=== PATIENT | male | born 1975 | race Caucasian/White ===

== ENCOUNTER 2020-02-04 13:42 | Emergency (ER) | payer OTHER ==
--- NOTE | 2020-02-04 13:47 | PDOC ---
Rapid Medical Evaluation Time Seen by Provider: 02/04/20 13:45 Medical Evaluation: Allergies Allergy/AdvReac Type Severity Reaction Status Date / Time No Known Allergies Allergy Verified 02/04/20 13:44 02/04/20 13:45 45 year old male pmhx of HTN CAD (on plavix) kidney stones complaining of R flank pain. PE very mild R CVAT Plan: UA Labs CT Pt to precede to ED for further eval
[2020-02-04 13:48] VITALS: BP 165/90; PULSE 83; TEMP 98.4; BMI 32.3
--- OUTSIDE RECORDS SUMMARY | 2020-02-04 14:14 | XMS ---
:1975 Author Organization [facility] Support Name Relationship Address Phone [address] [address] Unavailable N/A [address] [place] [address] Re-disclosure Warning The records that you are about to access may contain information from federally- assisted alcohol or drug abuse programs. If such information is present, then the following federally mandated warning applies: This information has been disclosed to you from records protected by federal confidentiality rules (42 CFR part 2). The federal rules prohibit you from making any further disclosure of this information unless further disclosure is expressly permitted by the written consent of the person to whom it pertains or as otherwise permitted by 42 CFR part 2. A general authorization for the release of medical or other information is NOT sufficient for this purpose. The Federal rules restrict any use of the information to criminally investigate or prosecute any alcohol or drug abuse patient.The records that you are about to access may contain highly sensitive health information, the redisclosure of which is protected by Article 27-F of the [facility] Public Health law. If you continue you may haveaccess to information: Regarding HIV / AIDS; Provided by facilities licensed or operated by the [facility] Office of Mental Health; or Provided by the [facility] Office for People With Developmental Disabilities. If such information is present, then the following [facility] mandated warning applies: This information has been disclosed to you from confidential records which are protected by state law. State law prohibits you from making any further disclosure of this information without the specific written consent of the person to whom it pertains, or as otherwise permitted by law. Any unauthorized further disclosure in violation of state law may result in a fine or skilled nursing sentence or both. A general authorization for the release of medical or other information is NOT sufficient authorization for further disclosure. Insurance Providers Payer name Policy type Policy ID Covered Covered alliance party's Policy P kane / Coverage alliance party ID relationship to Josue Inf ormation type josue LENARD [id number] 000 HEALTH NON CAP Results ID Date Data Source [id number] 01/27/2020 03:17:00 PM EDT [facility] Name Value Range Interpretation Code Description Data Desire rce(s) Supporting Document(s ) SARS-COV-2 [facility] QL NIMA+PROBE This lab was ordered by SRINIVASA MARTINEZ and reported by [facility]. ID Date Data Source [id number] 09/26/2019 01:48:00 PM EDT [facility] Name Value Range Interpretation Code Description Data Desire rce(s) Supporting Document(s ) SARS-COV-2 [facility] PCR This lab was ordered by [facility] and reported by [facility]. Procedure
--- NOTE | 2020-02-04 14:40 | PDOC ---
History of Present Illness - General Chief Complaint: Back Pain Stated Complaint: LT SIDE PAIN Time Seen by Provider: 02/04/20 13:45 History Source: Patient - History of Present Illness Timing/Duration: reports: getting worse, intermittent Past History - Medical History Allergies/Adverse Reactions: Allergies Allergy/AdvReac Type Severity Reaction Status Date / Time No Known Allergies Allergy Verified 02/04/20 13:44 Cardiac Disorders: Yes (CAD) COPD: No HTN: Yes Kidney Stones: Yes - Surgical History Cardiac Surgery: Yes (1 stent) - Psycho-Social/Smoking History Smoking History: Never smoked Have you smoked in the past 12 months: No - Substance Abuse Hx (Audit-C & DAST Scrn) How often the patient has a drink containing alcohol: Never Score: In Men: 4 or > Positive; In Women: 3 or > Positive: 0 Screen Result (Pos requires Nsg. Audit-10AR): Negative In the last yr the pt used illegal drug/Rx for NonMed reason: No Score: Yes response is considered Positive: 0 Screen Result (Positive result requires Nsg. DAST-10): Negative Review of Systems - Review of Systems Constitutional: No: Chills, Fever : Yes: Flank Pain. No: Dysuria, Hematuria *Physical Exam - Vital Signs Last Vital Signs Temp Pulse Resp BP Pulse Ox 98.4 F 83 18 165/90 98 02/04/20 13:44 02/04/20 13:44 02/04/20 13:44 02/04/20 13:44 02/04/20 13:44 - Physical Exam General Appearance: Yes: Appropriately Dressed. No: Apparent Distress HEENT: positive: Normal Voice Neck: positive: Supple Respiratory/Chest: negative: Respiratory Distress Gastrointestinal/Abdominal: positive: Soft. negative: Tender Musculoskeletal: negative: CVA Tenderness Integumentary: positive: Dry, Warm Neurologic: positive: Fully Oriented, Alert, Normal Mood/Affect ED Treatment Course - LABORATORY CBC & Chemistry Diagram: 02/04/20 15:00 02/04/20 15:00 Medical Decision Making - Medical Decision Making 02/04/20 14:38 45 yo M, h/o uncomplicated renal stones, here w/ worsening R intermittent flank pain, similar to prior stone. +nausea, no vomiting, dysuria, hematuria, f/c. See exam R/o recurrent renal colic Denies pain at this time but states it is intermittent -labs/ua -CT 02/04/20 14:52 02/04/20 16:[address], patient states he passed a stone and was able to col lect it in specimen bag. No pain at this time. CT read as 0.3 cm non- obstructing stone in the midpole of the right kidney. No ureteral stone or hydro noted. Labs unremarkable, pt declined to wait for UA results. Stable for discharge to take Motrin for any discomfort as needed and follow-up with urology Discharge - Discharge Information Problems reviewed: Yes Clinical Impression/Diagnosis: Right flank pain Condition: Improved Disposition: HOME - Follow up/Referral Referrals: Jonathon Fiore MD [Primary Care Provider] - Fish Anderson MD., [Staff Physician] - - Patient Discharge Instructions Patient Printed Discharge Instructions: DI for Kidney Stones Additional Instructions: Your pain was most likely caused by the stone that you passed while in the emergency room. Your CAT scan shows a 0.3 cm stone that is in the kidney itself and usually causes no pain Return to the ED as needed, otherwise follow-up with your urologist - Post Discharge Activity Work/Back to School Note: Back to Work
[2020-02-04] MEDS ORDERED: SODIUM CHLORIDE 1,000 ML IV STA (14:51)
[2020-02-04] MEDS ORDERED: KETOROLAC TROMETHAMINE 30 MG/1 ML VIAL IVPUSH ONE (14:51)
[2020-02-04] MEDS ORDERED: ONDANSETRON 4 MG/2 ML VIAL IVPUSH ONE (14:51)
[2020-02-04] MEDS ORDERED: KETOROLAC TROMETHAMINE 30 MG/1 ML VIAL ONE (15:42)
[2020-02-04 15:49] LABS: BASO % 0.3 % (0-2.0); HEMATOCRIT 44.7 % (35.4-49); LYMPH % 12.3 % (8-40); MCH 30.9 pg (25.7-33.7); MCHC 33.6 g/dl (32.0-35.9); MEAN CELL VOLUME 92.1 fl (80-96); MONO % 8.7 % (3.8-10.2); NEUT % 77.7 % (42.8-82.8); PLATELET COUNT 223 K/MM3 (134-434); RBC 4.86 M/mm3 (4.00-5.60); RDW 13.5 % (11.9-15.9); WHITE BLOOD COUNT 9.5 K/mm3 (4.0-10.0)
[2020-02-04 15:56] LABS: ALBUMIN 3.8 g/dl (3.4-5.0); BILIRUBIN,TOTAL 0.5 mg/dL (0.2-1); BLOOD UREA NITROGEN 12.5 mg/dL (7-18); CALCIUM 8.9 mg/dL (8.5-10.1); CREATININE 0.8 mg/dL (0.55-1.3); POTASSIUM 4.4 mmol/L (3.5-5.1); TOT PROT 7.4 g/dl (6.4-8.2)
[2020-02-04 17:40] LABS: EPI CELLS 2 /uL (0-25.1); HYALINE CASTS 0 /uL (0-3.1); PH,URINE 5.5 (5.0-8.0); URINE APPEARANCE CLEAR; URINE BACTERIA 224 /uL (0-1359); URINE BILIRUBIN NEGATIVE (NEGATIVE); URINE COLOR YELLOW; URINE GLUCOSE (UA) NEGATIVE (NEGATIVE); URINE KETONE NEGATIVE (NEGATIVE); URINE LEUK ESTERASE NEGATIVE (NEGATIVE); URINE NITRITE NEGATIVE (NEGATIVE); URINE PROTEIN NEGATIVE (NEGATIVE); URINE RBC 48 /uL (0-23.9); URINE UROBILINOGEN 0.2 mg/dL (0.2-1.0); URINE WBC 4 /uL (0-25.8)
== END 2020-02-04 16:50 | disposition home or self-care (01) ==
LOC: JER 13:42
PROC: 3E0333Z Introduction of Anti-inflammatory into Peripheral Vein, Percutaneous Approach (ICD-10-PCS; principal; 2020-02-04)
PROC: 3E033GC Introduction of Other Therapeutic Substance into Peripheral Vein, Percutaneous Approach (ICD-10-PCS; 2020-02-04)
PROC: 3E0337Z Introduction of Electrolytic and Water Balance Substance into Peripheral Vein, Percutaneous Approach (ICD-10-PCS; 2020-02-04)
DX: R10.9 Unspecified abdominal pain (principal)
CPT/HCPCS: 36415; 74176-TC; 80053; 81003; 85025; 87077; 87086; 99284-25

== ENCOUNTER 2024-10-15 21:02 | Emergency (ER) | payer OTHER ==
[2024-10-15 21:11] VITALS: PULSE 102; RESP 16; TEMP 98.9; BMI 30.7
[2024-10-15] MEDS ORDERED: ACETAMINOPHEN INJECTION 100 ML ONE (21:47)
[2024-10-15] MEDS ORDERED: amLODIPine BESYLATE 10 MG TABLET (FP) ONE (21:47)
[2024-10-15 22:02] VITALS: BP 159/98
[2024-10-15] MEDS: amLODIPine BESYLATE 10 MG TABLET (FP) PO ONE (22:02)
[2024-10-15] MEDS: ACETAMINOPHEN 1000 MG/100 ML BAG IVPB ONE (22:02)
[2024-10-15 22:12] LABS: HEMATOCRIT 46.4 % (40.1-51.0); HEMOGLOBIN 15.3 g/dL (13.7-17.5); MEAN CELL VOLUME 91.3 fl (79.0-92.2); MEAN PLT VOLUME 9.8 fl (9.4-12.4); PLATELET COUNT 282 x10^3/uL (163-337); RDW 12.3 % (12.2-16.1)
[2024-10-15 22:34] LABS: POTASSIUM 4.6 mmol/L (3.5-5.1)
[2024-10-15 22:36] LABS: ALBUMIN 3.7 g/dl (3.4-5.0); BLOOD UREA NITROGEN 17.8 mg/dL (7-18); CALCIUM 9.7 mg/dL (8.5-10.1); MAGNESIUM 2.1 mg/dL (1.8-2.4)
[2024-10-15 22:39] LABS: CREATININE 0.9 mg/dL (0.55-1.3)
[2024-10-15 22:41] LABS: BILIRUBIN,TOTAL 0.5 mg/dL (0.2-1); TOT PROT 7.3 g/dl (6.4-8.2)
== END 2024-10-15 23:13 | disposition home or self-care (01) ==
LOC: JER 21:02
PROC: 3E033NZ Introduction of Analgesics, Hypnotics, Sedatives into Peripheral Vein, Percutaneous Approach (ICD-10-PCS; principal; 2024-10-15)
DX: R51.9 Headache, unspecified (principal); I10 Essential (primary) hypertension
CPT/HCPCS: 36415; 70450-TC; 71046-TC-FY; 80053; 82550; 83735; 84484; 85027; 93005; 93010; 96372; 99285-25